=== PATIENT | male | born 1990 | race Caucasian/White ===

== ENCOUNTER 2019-10-12 09:53 | Emergency (ER) | payer MEDICAID ==
[~2019-10-12] VITALS: Ht 165.1 cm; Wt 61.2 kg
[2019-10-12 09:56] VITALS: Ht 165.1 cm; Wt 61.2 kg
[2019-10-12 11:43] VITALS: BP 119/84
== END 2019-10-12 11:43 | disposition home or self-care (01) ==
LOC: ED 09:53
DX: S62.522A Displaced fracture of distal phalanx of left thumb, initial encounter for closed fracture (principal); S61.012A Laceration without foreign body of left thumb without damage to nail, initial encounter; W31.2XXA Contact with powered woodworking and forming machines, initial encounter; Y93.89 Activity, other specified; Y92.89 Other specified places as the place of occurrence of the external cause; Y99.8 Other external cause status
CPT/HCPCS: 90715; J2001; Q0092

== ENCOUNTER 2019-10-15 08:38 | Emergency (ER) | payer MEDICAID ==
[~2019-10-15] VITALS: Ht 162.6 cm; Wt 59.9 kg
[2019-10-15 08:46] VITALS: Ht 162.6 cm; Wt 59.9 kg
[2019-10-15 09:37] VITALS: BP 128/85
== END 2019-10-15 09:37 | disposition home or self-care (01) ==
LOC: ED 08:38
DX: S61.012D Laceration without foreign body of left thumb without damage to nail, subsequent encounter (principal); X58.XXXD Exposure to other specified factors, subsequent encounter
CPT/HCPCS: A4570

== ENCOUNTER 2019-10-22 08:24 | Emergency (ER) | payer MEDICAID ==
[~2019-10-22] VITALS: Ht 165.1 cm; Wt 60.8 kg
[2019-10-22 08:39] VITALS: Ht 165.1 cm; Wt 60.8 kg
[2019-10-22 09:15] VITALS: BP 130/82
== END 2019-10-22 09:15 | disposition home or self-care (01) ==
LOC: ED 08:24
DX: S61.012D Laceration without foreign body of left thumb without damage to nail, subsequent encounter (principal); X58.XXXD Exposure to other specified factors, subsequent encounter

== ENCOUNTER 2019-11-01 07:48 | Emergency (ER) | payer MEDICAID ==
[~2019-11-01] VITALS: Ht 160 cm; Wt 61.7 kg
[2019-11-01 07:54] VITALS: Ht 160 cm; Wt 61.7 kg
[2019-11-01 08:42] VITALS: BP 122/72
== END 2019-11-01 08:42 | disposition home or self-care (01) ==
LOC: ED 07:48
DX: X58.XXXD Exposure to other specified factors, subsequent encounter (principal); S41.112D Laceration without foreign body of left upper arm, subsequent encounter; S62.522D Displaced fracture of distal phalanx of left thumb, subsequent encounter for fracture with routine healing